=== PATIENT | male | born 1955 | race Hispanic/Latino ===

== ENCOUNTER → 2018-01-30 | Outpatient (CLI) | payer MEDICARE | END | disposition home or self-care (01) | LOC: RAH 11:11 | PROVIDERS: ATTEND Family Medicine | DX: M25.551 Pain in right hip (principal) | CPT/HCPCS: 73502 ==

== ENCOUNTER → 2018-09-24 | Outpatient (CLI) | payer MEDICARE | END | disposition home or self-care (01) | LOC: SHCH 13:07 | PROVIDERS: ATTEND Internal Medicine Cardiovascular Disease | DX: I35.1 Nonrheumatic aortic (valve) insufficiency (principal); I50.32 Chronic diastolic (congestive) heart failure | CPT/HCPCS: 93306 ==

== ENCOUNTER → 2019-08-02 | Outpatient (CLI) | payer MEDICARE | END | disposition home or self-care (01) | LOC: SHCH 11:22 | PROVIDERS: ATTEND Internal Medicine Cardiovascular Disease | DX: I51.7 Cardiomegaly (principal); I10 Essential (primary) hypertension | CPT/HCPCS: 93306 ==

== ENCOUNTER → 2021-01-04 | Outpatient (CLI) | payer OTHER | END | disposition home or self-care (01) | LOC: SHCH 10:18 | PROVIDERS: ATTEND Internal Medicine Cardiovascular Disease | DX: R06.00 Dyspnea, unspecified (principal) | CPT/HCPCS: 93306; 93356 ==

== ENCOUNTER → 2021-07-04 | Outpatient (CLI) | payer OTHER | END | disposition home or self-care (01) | LOC: RAH 16:29 | PROVIDERS: ATTEND Family Medicine | DX: M47.814 Spondylosis without myelopathy or radiculopathy, thoracic region (principal); M51.34 Other intervertebral disc degeneration, thoracic region; M51.36 Other intervertebral disc degeneration, lumbar region | CPT/HCPCS: 72072; 72100 ==

== ENCOUNTER 2021-07-14 07:26 | Observation (INO) | payer OTHER ==
[2021-07-13 13:42] LABS: BASOPHILS % (AUTO) 0.4 % (0.0-5.0); HEMATOCRIT 46.6 % (42-54); LYMPHOCYTES % (AUTO) 22.2 % (21.0-51.0); MEAN CORPUSCULAR HEMOGLOBIN 29.7 pg (27.0-33.0); MEAN CORPUSCULAR HGB CONC 33.7 g/dL (32.0-36.0); MEAN CORPUSCULAR VOLUME 88.3 fL (79-99); MONOCYTES % (AUTO) 5.5 % (3.0-13.0); NEUTROPHILS % (AUTO) 71.4 % (40.0-77.0); PLATELET COUNT (AUTO) 240 K/uL (130-400); RED BLOOD CELL COUNT(AUTO) 5.28 MIL/uL (4.50-6.20); RED CELL DISTRIBUTION WIDTH 12.1 % (11.0-15.5); WHITE BLOOD COUNT (AUTO) 10.6 K/uL (4.8-10.8)
[2021-07-13 13:44] LABS: APPEARANCE,URINE Clear (CLEAR); BILIRUBIN,URINE Negative (NEGATIVE); COLOR,URINE Yellow (YELLOW); GLUCOSE, URINE (UA) 500 mg/dL (NEGATIVE); KETONES,URINE Negative (NEGATIVE); LEUKOCYTE ESTERASE ,URINE Negative (NEGATIVE); NITRATE,URINE Negative (NEGATIVE); OCCULT BLOOD,URINE Negative (NEGATIVE); PROTEIN,URINE Negative (NEGATIVE); UROBILINOGEN,URINE 0.2 mg/dL (0.2-1.0)
[2021-07-13 13:48] LABS: BACTERIA,URINE Rare /HPF (None Seen); RBC,URINE 0-1 /HPF (0-1); SQUAMOUS EPITHELIAL CELL,UR Rare /HPF (0-2); WBC,URINE 0-1 /HPF (0-1)
[2021-07-13 13:57] LABS: INR 0.99 (0.85-1.15); PROTHROMBIN TIME 10.8 SEC (9.6-11.6)
[2021-07-13 13:58] LABS: ALBUMIN 4.4 g/dL (3.5-5.0); BILIRUBIN,TOTAL 0.6 mg/dL (0.2-1.0); CREATININE 1.3 mg/dL (0.5-1.5); PARTIAL THROMBOPLASTIN TIME 25.4 SEC (26.3-35.5); POTASSIUM 4.3 mmol/L (3.5-5.1)
[2021-07-13 14:30] VITALS: BP 146/91
[~2021-07-14] VITALS: Ht 177.8 cm; Wt 96.3 kg
[2021-07-14] VITALS (24 sets, daily range): BP systolic 111–140; BP diastolic 54–90
[~2021-07-14 07:26] MED LIST: ALLO100T PO; CYCL-309 PO; LEVO137C4 PO; LOSA25TA41 PO; METF-446 PO; METH4TAB15 PO; NAPR-1023 PO; VITAD50000 PO
[2021-07-14] MEDS ORDERED: CLINDAMYCIN IVPB 900MG/50ML 50 ML IV ONE (08:09)
[2021-07-14] MEDS ORDERED: 0.9%NACL 1000ML 1,000 ML IV ONE (08:09)
[2021-07-14] MEDS ORDERED: MIDAZOLAM HCL 1 MG/ML 2ML VIAL ONE (08:33)
[2021-07-14] MEDS ORDERED: ROCURONIUM 10MG/1ML SYR 10 MG/ML ML ONE (08:33)
[2021-07-14] MEDS ORDERED: LIDOCAINE PF 100MG/5ML (2%) SYRINGE 5ML ONE (08:33)
[2021-07-14] MEDS ORDERED: FENTANYL CITRATE PF 50 MCG/1 ML 2ML VIAL ONE (08:33)
[2021-07-14] MEDS ORDERED: PROPOFOL 10 MG/ML 20ML VIAL IV ONE (08:33)
[2021-07-14] MEDS ORDERED: SUCCINYLCHOLINE CHLORIDE 20 MG/ML 10 ML VIAL ONE (08:33)
[2021-07-14] MEDS ORDERED: BUPIVACAINE/PF 0.5% 30ML VIAL ONE (09:42)
[2021-07-14] MEDS ORDERED: LIDOCAINE HCL 1% 20 ML VIAL ONE (09:42)
[2021-07-14] MEDS ORDERED: NEOSTIGMINE 5MG/5ML SYR IV ONE (09:47)
[2021-07-14] MEDS ORDERED: GLYCOPYRROLATE 1 MG/5 ML SYRINGE ONE (09:47)
[2021-07-14] MEDS ORDERED: AMIODARONE 360MG/200ML D5W(1MG/MIN) IV SCH ×2 (10:30)
[2021-07-14] MEDS ORDERED: PHARMACY COMMUNICATION MISC SCH (10:30)
[2021-07-14] MEDS ORDERED: AMIODARONE 540 MG/D5W 300ML (0.5MG/MIN) IV SCH ×2 (10:30)
[2021-07-14] MEDS ORDERED: AMIODARONE 150MG VIAL 150 MG in DEXTROSE 5%-WATER 100 ML IV SCH (10:30)
[2021-07-14] MEDS ORDERED: ACETAMINOPHEN 325 MG TAB PO PRN (13:00)
[2021-07-14] MEDS: LOSARTAN 25 MG TABLET PO SCH (13:03)
[2021-07-14] MEDS: METFORMIN HCL 500 MG TABLET PO SCH (17:46)
[2021-07-14] MEDS ORDERED: LIDOCAINE HCL-MPF 1% 2ML VIAL IV PRN (19:00)
[2021-07-14] MEDS ORDERED: POTASSIUM CHLORIDE 10% ELIXIR 20 MEQ/15 ML UDCUP PO PRN (19:00)
[2021-07-14] MEDS ORDERED: DEXTROSE 50%-WATER 50 ML DISP.SYRIN IV PRN (19:00)
[2021-07-14] MEDS ORDERED: GLUCAGON 1MG KIT 1 MG ML IM PRN (19:00)
[2021-07-14] MEDS ORDERED: POTASSIUM CHLORIDE 20MEQ/100ML 100 ML IV PRN (19:00)
[2021-07-14] MEDS ORDERED: KCL 20 MEQ ERTAB PO PRN (19:00)
[2021-07-14] MEDS ORDERED: NON-FORMULARY MEDICATION 1 EACH (Metformin HCl 1,000 MG) PO SCH (21:00)
[2021-07-14] MEDS ORDERED: CYCLOBENZAPRINE HCL 10 MG TABLET PO SCH (21:00)
[2021-07-15] VITALS: BP 146/77
[2021-07-15 05:03] VITALS: BP 119/76
[2021-07-15 05:14] LABS: HEMATOCRIT 44.2 % (42-54); MEAN CORPUSCULAR HEMOGLOBIN 30.4 pg (27.0-33.0); MEAN CORPUSCULAR HGB CONC 34.4 g/dL (32.0-36.0); MEAN CORPUSCULAR VOLUME 88.4 fL (79-99); RED CELL DISTRIBUTION WIDTH 12.2 % (11.0-15.5); WHITE BLOOD COUNT (AUTO) 11.9 K/uL (4.8-10.8)
[2021-07-15 05:26] LABS: PROTHROMBIN TIME 10.9 SEC (9.6-11.6)
[2021-07-15 05:27] LABS: PARTIAL THROMBOPLASTIN TIME 25.4 SEC (26.3-35.5)
[2021-07-15 05:29] LABS: CREATININE 1.4 mg/dL (0.5-1.5); MAGNESIUM 1.9 mg/dL (1.80-2.40); POTASSIUM 3.9 mmol/L (3.5-5.1)
[2021-07-15] MEDS ORDERED: LEVOTHYROXINE 112 MCG TABLET PO SCH (06:30)
[2021-07-15 07:52] VITALS: BP 134/82
[2021-07-15] MEDS: LOSARTAN 25 MG TABLET PO SCH (08:30)
[2021-07-15] MEDS: METFORMIN HCL 500 MG TABLET PO SCH ×2 (08:30→17:00)
[2021-07-15] MEDS ORDERED: ERGOCALCIFEROL (VITAMIN D2) 50,000 UNIT CAPSULE PO SCH (09:00)
[2021-07-15] MEDS ORDERED: ALLOPURINOL 100 MG TABLET PO SCH (09:00)
[2021-07-15 11:40] VITALS: BP 133/82
[2021-07-15] MEDS ORDERED: METO-391 PO (12:55)
[2021-07-15] MEDS ORDERED: RIVA20TA PO (12:55)
[2021-07-15] MEDS ORDERED: FLEC50TA3 PO (12:55)
[2021-07-15 15:51] VITALS: BP 135/72
[2021-07-15] MEDS ORDERED: FAMO-136 PO (16:52)
[2021-07-15] MEDS ORDERED: DOXY100C5 PO (16:52)
[2021-07-16] MEDS ORDERED: FAMOTIDINE 20MG TAB PO SCH (09:00)
== END 2021-07-15 18:10 | disposition home or self-care (01) ==
LOC: DAH 07:26 → DAHIP 07:27 → DAH 07:27 → 4DH 14:21
PROVIDERS: ADMIT Internal Medicine Pulmonary Disease; ATTEND Internal Medicine Pulmonary Disease
DX: T82.897A Other specified complication of cardiac prosthetic devices, implants and grafts, initial encounter (principal); Z20.822 Contact with and (suspected) exposure to COVID-19; L91.0 Hypertrophic scar; I49.5 Sick sinus syndrome; I97.190 Other postprocedural cardiac functional disturbances following cardiac surgery; I10 Essential (primary) hypertension; E11.9 Type 2 diabetes mellitus without complications; E03.9 Hypothyroidism, unspecified; E78.5 Hyperlipidemia, unspecified; I48.19 Other persistent atrial fibrillation; I48.0 Paroxysmal atrial fibrillation; G47.33 Obstructive sleep apnea (adult) (pediatric); G89.29 Other chronic pain; M54.59 Other low back pain; I42.9 Cardiomyopathy, unspecified; M10.9 Gout, unspecified; E66.9 Obesity, unspecified; Z45.018 Encounter for adjustment and management of other part of cardiac pacemaker; Z79.899 Other long term (current) drug therapy
CPT/HCPCS: 33222; 33228; 36415 ×2; 71046; 80048; 80053; 81001; 82948 ×9; 83735; 85025; 85027; 85610 ×2; 85730 ×2; 86850; 86900; 86901; 86923; 87635; 88300; 88305; 93005; 96365; 96366; A4215; A4221; A4222; A4223; A4663; A4930; A6204; A6260; C1785; C9803; G0168; G0378 ×31; J0282 ×3; J0330; J2001; J2250; J2704; J2710; J3010; J3490 ×3; J7030; J7060 ×3

== ENCOUNTER 2021-12-12 05:54 | Day surgery (SDC) | payer OTHER ==
[2021-12-08 11:30] LABS: BASOPHILS % (AUTO) 1.1 % (0.0-5.0); EOSINOPHILS % (AUTO) 2.5 % (0.0-8.0); HEMATOCRIT 40.7 % (42-54); LYMPHOCYTES % (AUTO) 49.1 % (21.0-51.0); MEAN CORPUSCULAR HEMOGLOBIN 30.5 pg (27.0-33.0); MEAN CORPUSCULAR HGB CONC 34.6 g/dL (32.0-36.0); MEAN CORPUSCULAR VOLUME 87.9 fL (79-99); MONOCYTES % (AUTO) 6.9 % (3.0-13.0); PLATELET COUNT (AUTO) 168 K/uL (130-400); RED BLOOD CELL COUNT(AUTO) 4.63 MIL/uL (4.50-6.20); RED CELL DISTRIBUTION WIDTH 12.8 % (11.0-15.5); WHITE BLOOD COUNT (AUTO) 5.7 K/uL (4.8-10.8)
[2021-12-08 11:39] LABS: CREATININE 1.4 mg/dL (0.5-1.5); POTASSIUM 4.7 mmol/L (3.5-5.1)
[2021-12-08 11:41] LABS: INR 0.98 (0.85-1.15); PROTHROMBIN TIME 10.7 SEC (9.6-11.6)
[2021-12-08 11:42] LABS: PARTIAL THROMBOPLASTIN TIME 25.4 SEC (26.3-35.5)
[2021-12-11 08:50] VITALS: BP 109/65
[~2021-12-12] VITALS: Ht 177.8 cm; Wt 89.1 kg
[2021-12-12] VITALS (7 sets, daily range): BP systolic 107–119; BP diastolic 53–74
[~2021-12-12 05:54] MED LIST changes: -CYCL-309 PO; +FLEC50TA3 PO; +LEVO125C4 PO; -LEVO137C4 PO; -METH4TAB15 PO; -NAPR-1023 PO; +VANCOMYCIN 1G/250ML KIT 250 ML IV SCH; -VITAD50000 PO
[2021-12-12] MEDS ORDERED: 0.9%NACL 1000ML 1,000 ML IV ONE (06:29)
[2021-12-12] MEDS ORDERED: LIDOCAINE HCL 1% MDV 50ML VIAL ONE (07:15)
[2021-12-12] MEDS ORDERED: MIDAZOLAM HCL 1 MG/ML 2ML VIAL ONE ×2 (07:15→08:46)
[2021-12-12] MEDS ORDERED: BUPIVACAINE/PF 0.25% 30ML VIAL IJ ONE (07:15)
[2021-12-12] MEDS ORDERED: MEPERIDINE-PF 25 MG/ML SYG ONE ×2 (07:15→08:46)
[2021-12-12] MEDS ORDERED: IODIXANOL 320 MG/ML 100 ML VIAL ONE (07:35)
[2021-12-12] MEDS ORDERED: TRAM50TA4 PO (11:17)
[2021-12-12] MEDS ORDERED: TRAMADOL HCL 50 MG TABLET PO PRN (11:30)
== END 2021-12-12 14:31 | disposition home or self-care (01) ==
LOC: DAH 05:54
PROVIDERS: ATTEND Internal Medicine Cardiovascular Disease
DX: I49.5 Sick sinus syndrome (principal); I44.1 Atrioventricular block, second degree; I47.1 Supraventricular tachycardia; I10 Essential (primary) hypertension; G47.33 Obstructive sleep apnea (adult) (pediatric); E78.5 Hyperlipidemia, unspecified; E11.9 Type 2 diabetes mellitus without complications; Z79.84 Long term (current) use of oral hypoglycemic drugs; Z79.899 Other long term (current) drug therapy; Z98.890 Other specified postprocedural states; Z90.49 Acquired absence of other specified parts of digestive tract; Z82.49 Family history of ischemic heart disease and other diseases of the circulatory system; Z83.3 Family history of diabetes mellitus; Z82.0 Family history of epilepsy and other diseases of the nervous system; Z83.438 Family history of other disorder of lipoprotein metabolism and other lipidemia; Z79.01 Long term (current) use of anticoagulants
CPT/HCPCS: 33208; 33225; 36415; 71045; 80048; 82948; 85025; 85610; 85730; 93005; A4215; A4222; A4223 ×2; A4606; A4663; C1769 ×4; C1898 ×2; C1900; C2621; J2175 ×2; J2250 ×2; J3370; J3490 ×2; J7030 ×2; Q9965; Q9967; 99156; 99157

== ENCOUNTER → 2022-01-25 | Outpatient (CLI) | payer OTHER ==
[~2022-01-25] MED LIST changes: +TRAM50TA4 PO; -VANCOMYCIN 1G/250ML KIT 250 ML IV SCH
== END | disposition home or self-care (01) ==
LOC: RAH 09:17
PROVIDERS: ATTEND Family Medicine
DX: I65.23 Occlusion and stenosis of bilateral carotid arteries (principal); H81.10 Benign paroxysmal vertigo, unspecified ear
CPT/HCPCS: 93880

== ENCOUNTER → 2022-10-17 | Outpatient (CLI) | payer OTHER | END | disposition home or self-care (01) | LOC: RAH 08:56 | PROVIDERS: ATTEND Family Medicine | DX: M19.011 Primary osteoarthritis, right shoulder (principal); M25.511 Pain in right shoulder; Z95.0 Presence of cardiac pacemaker | CPT/HCPCS: 73030 ==